=== PATIENT | female | born 1985 | race Caucasian/White ===

== ENCOUNTER 2017-09-24 07:53 | Emergency (ER) | payer OTHER ==
[2017-09-24] MEDS: KETOROLAC 30 MG/ML VIAL (J1885) IV (08:51)
[2017-09-24 09:04] LABS: BASO # 0.1 10^3/uL (0.0-0.2); BASO % 0.8 % (0.0-1.0); EOS # 0.1 10^3/uL (0.0-0.50); EOS % 1.2 % (0.0-3.0); HEMATOCRIT 44.5 % (36.0-47.0); HEMOGLOBIN 14.7 g/dl (12.0-16.0); IMMATURE GRANULOCYTE % 0.1 % (0-3.0); LYMPH # 2.6 10^3/uL (1.5-4.5); LYMPH % 29.4 % (24.0-44.0); MEAN CORPUSCULAR HEMOGLOBIN 28.9 pg (27.0-33.0); MEAN CORPUSCULAR VOLUME 87.6 fl (80.0-96.0); MONO # 0.6 10^3/uL (0.0-0.8); NEUTROPHILS # 5.4 10^3/uL (1.8-7.7); NEUTROPHILS % 61.5 % (36.0-66.0); PLATELET COUNT, AUTOMATED 365 10^3/uL (150-450); RED BLOOD COUNT 5.08 10^6/uL (4.00-5.40); RED CELL DISTRIBUTION WIDTH 12.4 % (11.5-14.5); WHITE BLOOD COUNT 8.8 10^3/uL (4.0-10.0)
[2017-09-24 09:18] LABS: PARTIAL THROMBOPLASTIN TIME 26.7 SECONDS (26.8-37.9)
[2017-09-24 09:40] LABS: ALBUMIN 4.1 GM/DL (3.2-5.2); ALBUMIN/GLOBULIN RATIO 1.03 (1.00-1.93); ALKALINE PHOSPHATASE 63 U/L (45-117); ALT/SGPT 39 U/L (12-78); ANION GAP 7 MEQ/L (8-16); AST/SGOT 26 U/L (7-37); BILIRUBIN,DIRECT 0.1 MG/DL (0.0-0.2); BILIRUBIN,TOTAL 0.5 MG/DL (0.2-1.0); BLOOD UREA NITROGEN 17 MG/DL (7-18); CALCIUM LEVEL 8.9 MG/DL (8.5-10.1); CARBON DIOXIDE LEVEL 25 MEQ/L (21-32); CHLORIDE LEVEL 109 MEQ/L (98-107); CPK CREATINE PHOSPHOKINASE 154 U/L (26-192); CREATININE FOR GFR 0.76 MG/DL (0.55-1.30); GLOMERULAR FILTRATION RATE > 60.0 (>60); GLUCOSE, FASTING 100 MG/DL (70-100); POTASSIUM SERUM 4.1 MEQ/L (3.5-5.1); SODIUM LEVEL 141 MEQ/L (136-145); TOTAL PROTEIN 8.1 GM/DL (6.4-8.2); TROPONIN I < 0.02 NG/ML (< 0.10)
[2017-09-24 09:40] LABS: NT-PRO BNP 53 PG/ML (<125)
[2017-09-24] MEDS ORDERED: ISOVUE-370 76% 100ML VIAL (Q9967) As Ordered (09:40)
[2017-09-24 09:41] LABS: CK-MB VALUE MASS 1.4 NG/ML (0.0-3.6)
[2017-09-24] MEDS: PERCOCET 5MG/325MG TAB PO (10:33)
[2017-09-24] MEDS: IPRATROPIUM 0.5MG/ALBUTEROL 2.5MG INH SOL UD 3ML (DUONEB)(J7620) NEB (11:00)
== END 2017-09-24 12:00 | disposition home or self-care (01) ==
LOC: M ED 07:53
DX: R07.9 Chest pain, unspecified (principal); M94.0 Chondrocostal junction syndrome [Tietze]; Z80.49 Family history of malignant neoplasm of other genital organs; Z80.3 Family history of malignant neoplasm of breast; Z98.890 Other specified postprocedural states
CPT/HCPCS: Q9967

== ENCOUNTER 2017-11-06 09:06 | Day surgery (SDC) | payer OTHER ==
[2017-11-06] MEDS ORDERED: LR 1,000 ML IV ×2 (09:15→14:45)
[2017-11-06 09:37] LABS: HEMATOCRIT 36.9 % (36.0-47.0); HEMOGLOBIN 12.1 g/dl (12.0-15.5)
[2017-11-06 09:53] LABS: CONTROL LINE HCG INT CTR LINE PRESENT; HCG, SERUM QUALITATIVE NEGATIVE (NEGATIVE)
[2017-11-06] MEDS ORDERED: fentaNYL 100 MCG/2 ML INJECTION (J3010) As Ordered (11:51)
[2017-11-06] MEDS ORDERED: LIDOCAINE 2% INJ 100 MG/5 ML SDV (FOR ANES.) As Ordered (11:51)
[2017-11-06] MEDS ORDERED: PROPOFOL 200 MG/20 ML VIAL As Ordered ×2 (11:51→14:40)
[2017-11-06] MEDS ORDERED: MIDAZOLAM INJ 2 MG/2 ML VIAL (J2250) As Ordered ×2 (11:51→14:39)
[2017-11-06] MEDS ORDERED: METOCLOPRAMIDE INJ 10MG/2ML VIAL (J2765) As Ordered (11:51)
[2017-11-06] MEDS ORDERED: ROCURONIUM BROMIDE 50 MG/5 ML VIAL As Ordered (11:51)
[2017-11-06] MEDS ORDERED: ONDANSETRON 4MG/2ML VIAL (J2405) As Ordered (12:03)
[2017-11-06] MEDS ORDERED: NEOSTIGMINE 10 MG/10 ML VIAL (J2710) As Ordered (13:18)
[2017-11-06] MEDS ORDERED: GLYCOPYRROLATE INJ 0.2 MG/ML 2 ML VIAL As Ordered (13:18)
[2017-11-06] MEDS: BUPIVACAINE HCL 0.25% 30 ML VIAL As Ordered (14:06)
[2017-11-06] MEDS ORDERED: dexameTHASONE 4 MG/ML 1ML VIAL (J1100) As Ordered ×2 (14:12)
[2017-11-06] MEDS ORDERED: MEPERIDINE INJ 25 MG/ML VIAL (J2175) IV ×2 (14:45→16:30)
[2017-11-06] MEDS ORDERED: KETOROLAC 30 MG/ML VIAL (J1885) IV ×2 (14:45→16:30)
[2017-11-06] MEDS ORDERED: fentaNYL 100 MCG/2 ML INJECTION (J3010) IV ×2 (14:45→16:30)
[2017-11-06] MEDS ORDERED: PERCOCET 5MG/325MG TAB PO (14:45)
[2017-11-06] MEDS ORDERED: diphenhydrAMINE INJ 50MG/ML VIAL (J1200) IV ×2 (14:45→16:30)
[2017-11-06] MEDS ORDERED: ONDANSETRON 4MG/2ML VIAL (J2405) IV ×2 (14:45→16:30)
[2017-11-06] MEDS: MIDAZOLAM INJ 2 MG/2 ML VIAL (J2250) IV (14:46)
[2017-11-06] MEDS ORDERED: PERCOCET 5MG/325MG TAB As Ordered (16:06)
[2017-11-06] MEDS: PERCOCET 5MG/325MG TAB PO ×2 (16:13→22:06)
[2017-11-06] MEDS: LR 1,000 ML IV (16:30)
[2017-11-06] MEDS: DOCUSATE SODIUM 100 MG CAP PO (22:02)
[2017-11-06] MEDS: IBUPROFEN 800 MG TAB PO (22:04)
[2017-11-07] MEDS: PERCOCET 5MG/325MG TAB PO ×2 (04:29→13:24)
[2017-11-07] MEDS: IBUPROFEN 800 MG TAB PO ×2 (06:22→14:28)
[2017-11-07] MEDS: DOCUSATE SODIUM 100 MG CAP PO (09:06)
[2017-11-07] MEDS ORDERED: ONDANSETRON 4 MG TAB (S0181) PO (09:45)
== END 2017-11-07 14:55 | disposition home or self-care (01) ==
LOC: M SDC 09:06 → M PED 17:10
DX: Z30.2 Encounter for sterilization (principal); N99.4 Postprocedural pelvic peritoneal adhesions; G43.909 Migraine, unspecified, not intractable, without status migrainosus; Z87.828 Personal history of other (healed) physical injury and trauma
CPT/HCPCS: 58661

== ENCOUNTER → 2019-06-15 | Outpatient (CLI) | payer OTHER ==
[~2019-06-15] MED LIST: COLA100C5 PO; IBUP80TA PO; OXYC1TAB23 PO; PROAAER10 INH; QC A650T3 PO
[2019-06-15 20:24] LABS: HEMATOCRIT 41.9 % (36.0-47.0); HEMOGLOBIN 12.9 g/dl (12.0-15.5); MEAN CORPUSCULAR HEMOGLOBIN 29.1 pg (27.0-33.0); MEAN CORPUSCULAR HGB CONC 30.8 g/dl (32.0-36.5); MEAN CORPUSCULAR VOLUME 94.6 fl (80.0-96.0); PLATELET COUNT, AUTOMATED 311 10^3/uL (150-450); RED BLOOD COUNT 4.43 10^6/uL (4.00-5.40); WHITE BLOOD COUNT 8.2 10^3/uL (4.0-10.0)
[2019-06-15 20:28] LABS: BLOOD UREA NITROGEN 25 MG/DL (7-18); CALCIUM LEVEL 9.3 MG/DL (8.5-10.1); CARBON DIOXIDE LEVEL 28 MEQ/L (21-32); CHLORIDE LEVEL 106 MEQ/L (98-107); CREATININE FOR GFR 0.98 MG/DL (0.55-1.30); GLOMERULAR FILTRATION RATE > 60.0 (>60); GLUCOSE, FASTING 97 MG/DL (70-100); POTASSIUM SERUM 4.7 MEQ/L (3.5-5.1); SODIUM LEVEL 139 MEQ/L (136-145)
== END ==
LOC: M LRY 16:24
PROVIDERS: ATTEND Plastic Surgery Surgery of the Hand
DX: N62 Hypertrophy of breast (principal)

== ENCOUNTER 2019-06-30 08:02 | Day surgery (SDC) | payer OTHER ==
[~2019-06-30] VITALS: Ht 160 cm; Wt 75.2 kg
[~2019-06-30 08:02] MED LIST changes: +LR 1,000 ML IV ONE
[2019-06-30] MEDS ORDERED: ROCURONIUM BROMIDE 50 MG/5 ML VIAL As Ordered ONE ×2 (08:49→12:34)
[2019-06-30] MEDS ORDERED: ONDANSETRON 4MG/2ML VIAL (J2405) As Ordered ONE (08:49)
[2019-06-30] MEDS ORDERED: dexameTHASONE 4 MG/ML 1ML VIAL (J1100) As Ordered ONE (08:49)
[2019-06-30] MEDS ORDERED: fentaNYL 250 MCG/5 ML INJECTION (J3010) As Ordered ONE (08:49)
[2019-06-30] MEDS ORDERED: LIDOCAINE 2% INJ 100 MG/5 ML SDV (FOR ANES.) As Ordered ONE (08:49)
[2019-06-30] MEDS ORDERED: PROPOFOL 200 MG/20 ML VIAL As Ordered ONE (08:49)
[2019-06-30] MEDS ORDERED: MIDAZOLAM INJ 2 MG/2 ML VIAL (J2250) As Ordered ONE (08:50)
[2019-06-30] MEDS ORDERED: DESFLURANE 240 ML INHALANT As Ordered ONE (09:04)
[2019-06-30] MEDS ORDERED: SCOPOLAMINE 1MG TRANSDERMAL PATCH TOP ONE (10:45)
[2019-06-30] MEDS ORDERED: BUPIVACAINE LIPOSOME/PF 1.3% 20ML VIAL (13.3MG/ML)(EXPAREL)(C9290 PER1MG) As Ordered ONE (10:52)
[2019-06-30] MEDS ORDERED: BACITRACIN PWD 50,000 UNITS VIAL As Ordered ONE (10:53)
[2019-06-30] MEDS ORDERED: ceFAZolin 1GM INJ (J0690 PER 500MG) As Ordered ONE (11:08)
[2019-06-30] MEDS ORDERED: ceFAZolin SOD 1 GM in D5W MINI-BAG PLUS 50 ML IV ONE (11:15)
[2019-06-30] MEDS ORDERED: KETOROLAC 60 MG/2 ML VIAL (J1885) As Ordered ONE (12:22)
[2019-06-30] MEDS ORDERED: HYDROmorphone HCL 2 MG/ML 1ML VIAL (J1170) As Ordered ONE (13:06)
[2019-06-30] MEDS ORDERED: ACETAMINOPHEN 1000MG 100ML IV BTL (OFIRMEV) (J0131 PER 10MG) As Ordered ONE (13:13)
--- NOTE | 2019-06-30 14:36 | POST-OPPD ---
Postoperative Procedure Note Date Of Procedure: Jun 30, 2019 PREOPERATIVE DIAGNOSIS: Bilateral breast hypertrophy POSTOPERATIVE DIAGNOSIS: same FINDINGS: Large breasts PROCEDURE: Bilateral breast reduction SURGEON: Dr Delgado EXTENSION COURSE COORDINATOR: Dr Maldonado ANESTHESIA: General SPECIMENS: Right breast 238gm, Left breast 222gm ESTIMATED BLOOD LOSS: 75cc REPLACED: none DRAINS: 10 mm NURIA drains x 2 COMPLICATIONS: none POSTOPERATIVE CONDITION: stable Dict [id number] RANDALL DELGADO DO Jun 30, 2019 14:36
[2019-06-30] MEDS ORDERED: ONDANSETRON 4MG/2ML VIAL (J2405) IV PRN ×2 (14:45→15:30)
[2019-06-30] MEDS ORDERED: fentaNYL 100 MCG/2 ML INJECTION (J3010) As Ordered ONE (14:56)
[2019-06-30] MEDS: fentaNYL 100 MCG/2 ML INJECTION (J3010) IV PRN ×4 (15:00→15:32)
[2019-06-30] MEDS: oxyCODONE 5MG TAB PO PRN ×2 (15:25→16:01)
[2019-06-30] MEDS ORDERED: MEPERIDINE INJ 25 MG/ML VIAL (J2175) IV PRN (15:30)
[2019-06-30] MEDS ORDERED: LR 1,000 ML IV SCH (15:30)
[2019-06-30] MEDS: PERCOCET 5MG/325MG TAB PO PRN (18:33)
[2019-06-30] MEDS ORDERED: KETOROLAC 30 MG/ML VIAL (J1885) IV PRN (20:00)
[2019-06-30] MEDS: ceFAZolin SOD 1 GM in D5W MINI-BAG PLUS 50 ML IV SCH (20:17)
[2019-06-30 20:43] VITALS: BP 109/69
--- NOTE | 2019-06-30 23:16 | RO ---
DATE OF PROCEDURE: 06/30/2019 PREPROCEDURE DIAGNOSIS: Bilateral breast hypertrophy. POSTPROCEDURE DIAGNOSIS: Bilateral breast hypertrophy. OPERATIVE PROCEDURE: Bilateral breast reduction. SURGEON: Mishel Duran DO [employer] SUPERVISOR: Marbella Maldonado DO ANESTHESIA: General SPECIMENS: Right breast 238 grams. Left breast 222 grams. ESTIMATED BLOOD LOSS: 75 mL REPLACED: None needed. DRAINS: 10 mm Robert-Russo drains times 2. POSTOPERATIVE CONDITION: Stable. COMPLICATIONS: None. 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 She is seen by us complaining of upper back pain and difficulty to perform her work duties due to her large breasts. She is wearing 34 to 36 DD bra. The patient wishes to have her breasts reduced. She failed all the physical therapy and [id number] pain medications. All the risks and benefits and alternatives discussed with the patient and she is ready to proceed with the surgery. DESCRIPTION OF PROCEDURE: On the day of surgery she was marked in the upright position. Her measurements from sternal notch to nipple areolar complex is 25.5 on the left, 26.5 on the right. Her IMF is a 20. This is where her nipple areolar complex markings are going to be. She is marked according to superior medial pedicle and then she was brought into the operating room, placed in the supine position. Preoperative antibiotics were given. Sequential stockings placed in the lower calves. General anesthesia was induced. She was prepped and draped in the usual sterile fashion. I started our procedure on the right side. Nipple areolar complex was measured at 42 mm in diameter and then we started our resection. Using electrocautery and a Peak cautery the inferior lateral portion of the breast was removed. Hemostasis was obtained using electrocautery. The pedicle was de-epithealized using Cummings scissors and good perfusion state. Nipple is in good perfusion. The wound was irrigated with Bacitracin irrigation solution. Exparel was given in the breast tissue, 6 mL, and the pedicle was turned superiorly to the new location at 20 cm from sternal notch. The breast mound was created using #0 Vicryl sutures. The pedicles are closed with interrupted #3-0 Monocryl sutures creating a vertical scar 6.5 cm vertically. Extra tissue was measured and resected creating the inferior horizontal scar. 10 mm Robert-Russo drain was placed at the lateral portion of the horizontal scar. Nipple areolar complex was sutured in with interrupted #3-0 and #4-0 Monocryl sutures as well as a #5-0 plain gut sutures in interrupted fashion. Then we turned our attention to the left side. Nipple areolar complex was measured at 42 mm in diameter and then resection has been started using electrocautery and a Peak cautery. Inferolateral portion of the breast was resected. Hemostasis was obtained. Nipple areolar complex was in good perfusion state. The pedicle is de-epithealized and then irrigated with Bacitracin irrigation solution. Exparel is infiltrated in the breast tissue, 6 mL. Then, the mound was recreated using #0 Vicryl sutures. The pillars were closed with interrupted #3-0 Monocryl sutures. Vertical limbs 6.5 cm. Excess tissue was measured then resected creating the horizontal scar. Horizontal incision was closed with interrupted #3-0 Monocryl sutures. Nipple areolar complex is sutured with #3-0 and #4-0 Monocryl sutures and #5-0 plain gut sutures interrupted. Prineo dressing is placed as well as Xeroform to the nipple areolar complex and bulky dressing. The remaining of Exparel was infiltrated in horizontal scar totaling 20 mL for the case. Surgical bra is placed. The patient is extubated in operating room without any difficulty and transferred to the recovery room in stable condition. MARGARITA
[2019-07-01] MEDS: ceFAZolin SOD 1 GM in D5W MINI-BAG PLUS 50 ML IV SCH (03:06)
[2019-07-01] MEDS: PERCOCET 5MG/325MG TAB PO PRN ×2 (03:07→09:09)
[2019-07-01 05:55] VITALS: BP 111/66
--- NOTE | 2019-07-01 09:06 | IPNPDOC ---
Subjective General Date/Time Seen The patient was seen on 07/01/19 at 07:30. Subject Chief Complaint/History The patient is a 34-year-old female admitted with a reason for visit of Bilateral Breast Hypertrophy. S/p breast reduction POD 1. Doing well. Pain controlled with meds. No nausea, vomiting. Current Medications Current Medications Current Medications Medications (Trade) Dose Ordered Sig/Chente Route PRN Reason Start Time Stop Time Status Last Admin Dose Admin Cefazolin Sodium 1 gm/Dextrose 50 ml @ 100 mls/hr Q8H IV 06/30/19 20:00 07/01/19 19:59 07/01/19 03:06 Fentanyl Citrate (Sublimaze) 25 mcg Q5MP PRN IV PAIN LEVEL 5-10 06/30/19 15:30 06/30/19 16:30 DC 06/30/19 15:32 Ketorolac Tromethamine (ToRADol) 15 mg Q6HP PRN IV MILD/MODERATE PAIN (PS 1-7) 06/30/19 20:00 07/05/19 19:59 Lactated Ringer's 1,000 ml @ 100 mls/hr Q10H IV 06/30/19 15:30 06/30/19 16:30 DC Meperidine HCl (Demerol) 12.5 mg Q5MP PRN IV SHIVERING 06/30/19 15:30 06/30/19 16:30 DC Ondansetron HCl (ZOFRAN INJection) 4 mg Q4HP PRN IV NAUSEA OR VOMITING 06/30/19 15:30 06/30/19 16:30 DC 06/30/19 15:00 Ondansetron HCl (ZOFRAN INJection) 4 mg Q6HP PRN IV NAUSEA OR VOMITING 06/30/19 14:45 06/30/19 21:17 Oxycodone HCl (Roxicodone, Oxyir) 5 mg ASDIRECTED PRN PO PAIN LEVEL 1-4 06/30/19 15:30 06/30/19 16:02 DC 06/30/19 16:01 Oxycodone/ Acetaminophen (Percocet 5mg/ 325mg Tablet) 2 tab Q6H PRN PO SEVERE PAIN (PS 8-10) 06/30/19 14:45 07/01/19 03:07 Allergies Coded Allergies: metoclopramide (Verified Adverse Reaction, Intermediate, seizure like activity, 06/30/19) Objective Physical Examination Examination GENERAL APPEARANCE:Patient seen, laying in bed, awake, alert, and oriented. Comfortable, in no acute distress. SKIN: Warm and moist. BREAST: warm flaps, soft. NAC viable. Flaps viable. NURIA serosanguinous drainage R18cc/L10cc. Diminishing. Post op swelling with minimal ecchymosis. LUNGS: Clear to auscultation bilaterally. No wheezing appreciated. HEART: No chest wall abnormalities. Regular rate and rhythm with no murmurs appreciated. ABDOMEN: Abdomen is soft, NT/ND Vital Signs Vital Signs Date Time Temp Pulse Resp B/P (MAP) Pulse Ox O2 Delivery O2 Flow Rate FiO2 07/01/19 05:55 98.1 52 16 111/66 (81) 96 Room Air 06/30/19 17:00 2.0 I&Os I&O- Last 24 Hours up to 6 AM 07/01/19 06:00 Intake Total 1200 ml Output Total 1131 ml Balance 69 ml Impression S/p Breast Reduction POD 1 Stable for discharge Continue with NURIA drains monitoring. Support bra. Pain management. Incentive spirometry. Do not wet the surgical area, no heavy lifting. F/up plastic surgery. Instructions given to patient. Plan / VTE VTE Prophylaxis Ordered?: Yes RANDALL DELGADO DO Jul 01, 2019 09:06
[2019-07-01] MEDS ORDERED: PERCOCET PO (09:09)
== END 2019-07-01 11:35 | disposition home or self-care (01) ==
LOC: M SDC 08:02 → M MS5PR 16:35 → M SDC 07-01 11:35
PROVIDERS: ATTEND Plastic Surgery Surgery of the Hand
DX: N62 Hypertrophy of breast (principal); Z88.8 Allergy status to other drugs, medicaments and biological substances
CPT/HCPCS: 19318; 88305; 96365; 96366; 96375; C9290; J0131; J0690; J1100; J1170; J1885; J2250; J2405; J3010